=== PATIENT | male | born 1940 | race Caucasian/White ===

== ENCOUNTER 2016-10-11 17:37 | Emergency (ER) | payer MEDICARE, OTHER ==
[~2016-10-11] VITALS: Ht 182.9 cm; Wt 113.4 kg
== END 2016-10-11 18:25 | disposition short-term general hospital (02) ==
LOC: ER 17:37
DX: S00.81XA Abrasion of other part of head, initial encounter (principal); W18.30XA Fall on same level, unspecified, initial encounter; Z23 Encounter for immunization